=== PATIENT | female | born 1935 | race Caucasian/White ===

== ENCOUNTER 2020-07-15 09:55 | Outpatient (RCR) | payer MEDICARE, OTHER, SELFPAY | END 2020-08-04 23:59 | disposition home or self-care (01) | LOC: SPT 09:55 | PROVIDERS: PCP Family Medicine; Referring Provider Family Medicine; Visit Provider Family Medicine | DX: R15.9 Full incontinence of feces (principal); N39.41 Urge incontinence; N81.89 Other female genital prolapse | CPT/HCPCS: 97110; 97140; 97161; 97530 ==

== ENCOUNTER 2020-08-05 06:00 | Outpatient (RCR) | payer MEDICARE, OTHER, SELFPAY | END 2020-09-04 23:59 | disposition home or self-care (01) | LOC: SPT 06:00 | PROVIDERS: PCP Family Medicine; Referring Provider Family Medicine; Visit Provider Family Medicine | DX: R15.9 Full incontinence of feces (principal); N81.89 Other female genital prolapse; N39.41 Urge incontinence | CPT/HCPCS: 97140; 97530 ==

== ENCOUNTER → 2022-09-23 15:44 | Outpatient (BNVA) | payer MEDICARE, OTHER, SELFPAY | PROVIDERS: PCP Family Medicine; Referring Provider Family Medicine; Visit Provider Physician Assistant | DX: S22.000A Wedge compression fracture of unspecified thoracic vertebra, initial encounter for closed fracture (principal); S32.010A Wedge compression fracture of first lumbar vertebra, initial encounter for closed fracture; W19.XXXA Unspecified fall, initial encounter | CPT/HCPCS: 72070; 72100 ==

== ENCOUNTER 2022-09-23 17:11 | Outpatient (CLI) | payer MEDICARE, OTHER, SELFPAY | END 2022-09-23 17:12 | disposition home or self-care (01) | LOC: SPT 17:12 | PROVIDERS: PCP Family Medicine; Visit Provider Physician Assistant | DX: Z46.89 Encounter for fitting and adjustment of other specified devices (principal); S22.000D Wedge compression fracture of unspecified thoracic vertebra, subsequent encounter for fracture with routine healing; X58.XXXD Exposure to other specified factors, subsequent encounter | CPT/HCPCS: 97760; 99203; L0456 ==

== ENCOUNTER 2022-11-02 12:52 | Outpatient (CLI) | payer MEDICARE, OTHER, SELFPAY ==
--- NOTE | 2022-11-02 13:00 | MR_ITS ---
WS: [email or web address] MRI THORACIC SPINE WITHOUT CONTRAST TECHNIQUE: Sagittal T1, T2 and STIR imaging. Axial T2 imaging. Noncontrast imaging obtained. CLINICAL INFORMATION: pain COMPARISON: None. FINDINGS: Mild thoracic curve. No acute compression. Chronic anterior wedging at L1. Cord signal is normal. No high-grade central canal stenosis. Moderate facet arthropathy lower thoracic spine. A few tiny shallow disc protrusions in the upper tho racic spine at T2-T3, T3-T4, T4-T5, T5-T6, and T6-T7. Moderate facet arthropathy lower thoracic spine at T9-T10, T10-T11 and T11-T12. Adrenal glands are normal. Normal caliber thoracic aorta. Small to moderate esophageal hiatal hernia. MR/MR thoracic spin wo con* [id number] IMPRESSION: 1. Mild thoracic curve. Mild thoracic kyphosis. No acute compression fractures . 2. Chronic anterior wedging at L1. 3. No high-grade central canal stenosis. Cord signal is normal. 4. Spondylitic changes described above. 5. Small to moderate esophageal hiatal hernia.
--- NOTE | 2022-11-02 13:45 | MR_ITS ---
WS: [email or web address] MRI LUMBAR SPINE NONCONTRAST TECHNIQUE: Sagittal T1, T2 and STIR imaging. Axial T1 and T2 imaging. CLINICAL INFORMATION: pain COMPARISON: None. FINDINGS: Mild lumbar curve. No acute compression. Slight anterolisthesis L4 on L5. Chronic anterior wedging at L1 with endplate degenerative changes. L1-L2: Disc osteophyte complex with endplate ridging. Narrowing of the LEFT subarticular recess. Mild LEFT foraminal narrowing. Mild facet arthropathy. L2-L3: Mild disc bulging with osteophytic ridging. Impingement on the traversing RIGHT L3 nerve root and subarticular recess. Foramen are patent. Mild facet arthropathy. L3-L4: Disc osteophyte complex with endplate ridging. Impingement on the traversing RIGHT L4 nerve ro ot. Mild facet arthropathy. Mild RIGHT and no significant LEFT foraminal narrowing. Moderate facet ar thropathy. L4-L5: Disc osteophyte complex with endplate ridging. Impingement RIGHT subarticular recess. Mild RIG HT and no significant LEFT foraminal narrowing. Mild facet arthropathy. L5-S1: Disc osteophyte complex with endplate ridging. Impingement on the traversing RIGHT greater layla n LEFT S1 nerve roots. Mild to moderate RIGHT and no LEFT foraminal narrowing. Moderate facet arthrop athy. Visualized pelvic bony structures: Normal. Paravertebral soft tissues: Normal. MR/MR lumbar spine wo con* [id number] IMPRESSION: 1. Mild lumbar curve. Chronic anterior wedging at L1 with endplate degenerativ e changes. 2. No acute compression fractures. 3. Impingement on the subarticular recess at multiple levels LEFT L1-L2, RIGHT L2-L3, RIGHT L3-L4, RIGHT L4-L5 and RIGHT L5-S1. 4. Impingement worse on the traversing RIGHT L4 and RIGHT S1 traversing nerve roots. 5. Mild to moderate bony foraminal narrowing LEFT L1-L2, RIGHT L3-L4, and RIGH T L5-S1. 6. Moderate facet arthropathy L2-L3, L3-L4, L4-L5, and L5-S1
== END 2022-11-02 12:53 | disposition home or self-care (01) ==
LOC: RAD 12:56
PROVIDERS: PCP Family Medicine; Visit Provider Physician Assistant
DX: S22.000A Wedge compression fracture of unspecified thoracic vertebra, initial encounter for closed fracture (principal); X58.XXXA Exposure to other specified factors, initial encounter; M47.894 Other spondylosis, thoracic region; M47.896 Other spondylosis, lumbar region
CPT/HCPCS: 72146; 72148

== ENCOUNTER → 2022-11-18 13:29 | Outpatient (BNVA) | payer MEDICARE, OTHER, SELFPAY | PROVIDERS: PCP Family Medicine; Visit Provider Orthopaedic Surgery | DX: M47.816 Spondylosis without myelopathy or radiculopathy, lumbar region (principal) | CPT/HCPCS: 99214 ==

== ENCOUNTER 2023-01-26 09:50 | Outpatient (CLI) | payer MEDICARE, OTHER, SELFPAY ==
--- NOTE | 2023-01-26 10:15 | USCV_ITS ---
Yuko De La O Age: 87 Gender: F : 1935 Exam Date: 01/26/2023 10:23 Ordering Phys: Radha Hinds MD Technologist: Natali Armenta [place] [facility] [place]ication: sob, HTN BP: 165 / 88 HR: 56 Rhythm: Sinus Technical Quality: Good MEASUREMENTS (Male / Female) Normal Values 2D ECHO LV Diastolic Diameter PLAX 4.7 cm 4.2 - 5.9 / 3.9 - 5.3 cm LV Systolic Diameter PLAX 1.2 cm IVS Diastolic Thickness 0.8 cm 0.6 - 1.0 / 0.6 - 0.9 cm IVS Systolic Thickness 1.5 cm LVPW Diastolic Thickness 0.9 cm 0.6 - 1.0 / 0.6 - 0.9 cm LVPW Systolic Thickness 2.5 cm LVOT Diameter 2.3 cm LV Ejection Fraction 2D Teich 96.3 % LV Ejection Fraction MOD 2C 37.0 % LV Ejection Fraction 2C AL 37.8 % LA Diameter 4.1 cm LA Width 3.8 cm LA Height 5.4 cm RA Width 4.0 cm RA Height 4.9 cm Aorta at Sinotubular Diameter 2.4 cm IVC Diameter 2.0 cm M-MODE Aortic Annulus Diameter 2.4 cm LA Ao Ratio MM 2.1 MV E Point Septal Separation 1.3 cm DOPPLER AV Peak Velocity 124.0 cm/s LVOT Peak Velocity 94.0 cm/s AV Area Cont Eq vti 2.9 cm squared AV Area Cont Eq pk 3.0 cm squared MV Peak Velocity 95.0 cm/s MV Area PHT 4.5 cm squared Mitral E to A Ratio 1.2 MV E' Velocity 51.0 cm/s Mitral E to MV E' Ratio 12.3 Mitral E to LV E' Lateral Ratio 11.2 Mitral E to LV E' Septal Ratio 13.7 TR Peak Velocity 326.3 cm/s TR Peak Gradient 42.6 mmHg Right Atrial Pressure 8.0 mmHg Pulmonary Artery Systolic Pressu 50.6 mmHg PV Peak Velocity 96.7 cm/s RV Acceleration Time 0.1 s RV Ejection Time 0.3 s RV AcT/ET 0.4 FINDINGS Left Ventricle Normal left ventricular size, systolic function and wall thickness, with no regional wall motion abnormalities. Left ventricular ejection fraction is estimated at 65 %. Normal diastolic function. Right Ventricle Normal right ventricular size and systolic function. Right ventricular systolic pressure 48 mmHg. Right Atrium Normal right atrial size. Left Atrium Moderately increased left atrial size. Mitral Valve Mild mitral annular calcification. Structurally normal mitral valve. No mitral valve stenosis. Mild mitral valve regurgitation. Aortic Valve Structurally normal trileaflet aortic valve. No aortic valve stenosis. Mild aortic valve regurgitation. Tricuspid Valve Structurally normal tricuspid valve. No tricuspid valve stenosis. [id number]-[id number] tricuspid valve regurgitation. Pulmonic Valve Structurally normal pulmonic valve. No pulmonary valve stenosis. Trace pulmonary valve regurgitation. Pericardium No pericardial effusion. Aorta Normal size aortic root and proximal ascending aorta. IVC Normal IVC dimension with >50% respiratory change of the inferior vena cava. CONCLUSIONS 1. Normal left ventricular size, systolic function and wall thickness, with no regional wall motion abnormalities. Left ventricular ejection fraction is estimated at 65 %. Normal diastolic function. 2. Pulmonary artery pressure estimated at 48 mmHg. 3. Sayi-uv-adfvhahy tricuspid valve regurgitation. 4. Mild aortic and mitral valve regurgitation. 5. No prior similar studies to compare. Edna Mejia MD (Electronically Signed) Final Date: 26 Jan 2023 17:16 S
== END 2023-01-26 09:51 | disposition home or self-care (01) ==
PROVIDERS: PCP Family Medicine; Visit Provider Family Medicine
DX: I07.1 Rheumatic tricuspid insufficiency (principal); R06.00 Dyspnea, unspecified
CPT/HCPCS: 93306

== ENCOUNTER → 2023-03-28 11:23 | Outpatient (BNVA) | payer MEDICARE, OTHER, SELFPAY | PROVIDERS: PCP Family Medicine; Visit Provider Internal Medicine Cardiovascular Disease | DX: R06.02 Shortness of breath (principal); I10 Essential (primary) hypertension; K21.9 Gastro-esophageal reflux disease without esophagitis; M81.0 Age-related osteoporosis without current pathological fracture; Z87.891 Personal history of nicotine dependence | CPT/HCPCS: 99204 ==

== ENCOUNTER 2023-04-08 09:38 | Outpatient (CLI) | payer MEDICARE, OTHER, SELFPAY ==
--- NOTE | 2023-04-08 10:00 | USCV_ITS ---
Yuko De La O Age: 87 Gender: F : 1935 Exam Date: 04/08/2023 09:51 Ordering Phys: Edna Mejia MD ([email or web address]) Technologist: CT Exam Location: [facility] – [place] Indication: htn Aortic Velocity @ SMA (cm/s) 95.1 RIGHT KIDNEY LEFT KIDNEY Velocity (cm/s) Velocity (cm/s) Sys/Villar Sys/Villar Resistive Index Resistive Index 74.4 / 13.1 0.82 Proximal Renal Artery 133.1 / 20.8 0.84 71.4 / 14.4 0.80 Mid Renal Artery 96.0 / 15.0 0.84 94.7 / 16.9 0.82 Hilar 145.0 / 16.1 0.89 20.9 / 13.7 0.34 Upper Pole 43.8 / 9.9 0.77 29.7 / 8.6 0.71 Mid Pole 34.1 / 9.2 0.73 45.0 / 9.7 0.78 Lower Pole 30.3 / 9.7 0.68 0.80 Renal Aortic Ratio 1.47 Accleration Index (cm/sec2) 381.00 Hilar 1074.0 0 213.00 Upper Pole 500.00 141.00 Mid Pole 128.00 163.00 Lower Pole 125.00 94.7 Kidney Length (mm) 98.7 FINDINGS No evidence of abdominal aortic aneurysm. There is no evidence of hemodynamically significant right renal artery stenosis. There is no evidence of hemodynamically significant left renal artery stenosis. CONCLUSIONS No sonographic evidence of hemodynamically significant renal artery stenosis bilaterally. Dr. Rosa Ayala DO (Electronically Signed) Final Date: 08 April 2023 12:06 S
== END 2023-04-08 09:39 | disposition home or self-care (01) ==
PROVIDERS: PCP Family Medicine; Visit Provider Internal Medicine Cardiovascular Disease
DX: I10 Essential (primary) hypertension (principal); Z86.79 Personal history of other diseases of the circulatory system
CPT/HCPCS: 93975

== ENCOUNTER → 2023-06-27 13:32 | Outpatient (BNVA) | payer MEDICARE, OTHER, SELFPAY | PROVIDERS: PCP Family Medicine; Visit Provider Internal Medicine Cardiovascular Disease | DX: I10 Essential (primary) hypertension (principal); Z87.891 Personal history of nicotine dependence | CPT/HCPCS: 99214 ==

== ENCOUNTER → 2023-10-18 13:44 | Outpatient (BNVA) | payer MEDICARE, OTHER, SELFPAY | PROVIDERS: PCP Family Medicine; Referring Provider Family Medicine; Visit Provider Orthopaedic Surgery | DX: S32.010G Wedge compression fracture of first lumbar vertebra, subsequent encounter for fracture with delayed healing; X58.XXXD Exposure to other specified factors, subsequent encounter | CPT/HCPCS: 72072; 72110; 99214 ==

== ENCOUNTER 2023-12-01 12:54 | Outpatient (CLI) | payer MEDICARE, OTHER, SELFPAY ==
--- NOTE | 2023-12-01 13:00 | MR_ITS ---
WS: [email or web address] MRI LUMBAR SPINE NONCONTRAST HISTORY: back pain COMPARISON: Prior lumbar spine MRI 11/02/2022 and recent lumbar radiographs 10/18/2023 TECHNIQUE: Sagittal and axial multisequence imaging is submitted. Cervical disc osteophyte complexes contact the cervical cord at C4-5 and C5-6 with mild stenosis. Inc reasing kyphosis centered at the thoracolumbar junction. New acute compression fractures at T11 and T 12 with marrow edema throughout the vertebral bodies extending towards the pedicles. Approximately 30 to 40% loss of height anteriorly. No retropulsion. The L1 compression fracture by 20% is chronic. Curvature and scoliosis lumbar spine. L4 anterolisthesis by 2 mm. Disc spaces are narrowed and desicc ated throughout the lumbar spine. Conus terminates normally at L1-2 disc level. T10-11: Moderate bilateral foraminal stenosis. T11-12: Mild bilateral foraminal stenosis. L1-L2: Diffuse annular disc bulging encroaching upon the ventral thecal sac and the subarticular rece ss. Bilateral ligamentum flavum and facet arthritis. Mild central with moderate bilateral subarticula r recess and foraminal stenosis. L2-L3: Diffuse annular disc bulging with facet and ligamentum flavum hypertrophy. Mild bilateral suba rticular recess encroachment. L3-L4: Diffuse annular disc bulging encroaching upon the ventral thecal sac and subarticular recesses . Slightly greater encroachment and contact on the RIGHT traversing L4 nerve root. Mild central and b ilateral subarticular recess and RIGHT foraminal stenosis. L4-L5: Diffuse annular disc bulging asymmetric to the LEFT. Mild disc contact on the traversing L5 ne rve roots. Very slight central and bilateral subarticular recess and RIGHT foraminal stenosis. Mild L EFT foraminal stenosis. L5-S1: Annular disc bulging with disc contact on the S1 nerve roots. Disc and osteophyte and facet na rrowing of the foramina. At least moderate bilateral foraminal stenosis, RIGHT greater than LEFT. IMPRESSION: 1. Acute compression fractures involving T11 and T12 by 30 to 40%. No retropulsion. 2. Chronic L1 20% compression fracture. 3. Moderate foraminal stenosis at T10-11 and mild at T11-12. 4. L1-2: Mild central with moderate bilateral subarticular recess and foraminal stenosis. 5. L4-5: Mild central and bilateral subarticular recess and RIGHT foraminal stenosis. 6. Mild central stenosis with bilateral subarticular recess and RIGHT foraminal stenosis. 7. L3-4: Mild central, bilateral subarticular recess and RIGHT foraminal stenosis. Slightly greater disc contact on the traversing RIGHT L4 nerve root. 8. L5-S1: Annular disc bulging with disc contacting the S1 nerve roots. Moderate bilateral foraminal stenosis, RIGHT greater than LEFT. 9. The stenoses throughout the lumbar spine and degenerative changes not significantly progressed.
== END 2023-12-01 12:55 | disposition home or self-care (01) ==
LOC: RAD 12:54
PROVIDERS: PCP Family Medicine; Visit Provider Orthopaedic Surgery
DX: M54.9 Dorsalgia, unspecified (principal); M48.54XA Collapsed vertebra, not elsewhere classified, thoracic region, initial encounter for fracture; M48.04 Spinal stenosis, thoracic region; M48.061 Spinal stenosis, lumbar region without neurogenic claudication
CPT/HCPCS: 72148

== ENCOUNTER → 2023-12-19 10:48 | Outpatient (BNVA) | payer MEDICARE, OTHER, SELFPAY | PROVIDERS: PCP Family Medicine; Visit Provider Nurse Practitioner Family | DX: I10 Essential (primary) hypertension (principal); Z87.891 Personal history of nicotine dependence | CPT/HCPCS: 99214 ==

== ENCOUNTER → 2023-12-27 13:30 | Outpatient (BNVA) | payer MEDICARE, OTHER, SELFPAY | PROVIDERS: PCP Family Medicine; Visit Provider Orthopaedic Surgery | DX: S32.010G Wedge compression fracture of first lumbar vertebra, subsequent encounter for fracture with delayed healing (principal); X58.XXXD Exposure to other specified factors, subsequent encounter | CPT/HCPCS: 99214 ==

== ENCOUNTER → 2024-01-13 10:42 | Outpatient (BNVA) | payer MEDICARE, OTHER, SELFPAY | PROVIDERS: PCP Family Medicine; Visit Provider Family Medicine | DX: Z01.818 Encounter for other preprocedural examination (principal); R00.1 Bradycardia, unspecified; Z79.899 Other long term (current) drug therapy | CPT/HCPCS: 80053; 81003; 85025; 93005 ==

== ENCOUNTER → 2024-02-02 15:34 | Outpatient (BNVA) | payer MEDICARE, OTHER, SELFPAY | PROVIDERS: PCP Family Medicine; Visit Provider Orthopaedic Surgery | DX: M54.9 Dorsalgia, unspecified (principal); S32.010G Wedge compression fracture of first lumbar vertebra, subsequent encounter for fracture with delayed healing; X58.XXXD Exposure to other specified factors, subsequent encounter | CPT/HCPCS: 99214 ==

== ENCOUNTER 2024-02-15 10:52 | Outpatient (CLI) | payer MEDICARE, OTHER, SELFPAY ==
--- NOTE | 2024-02-15 11:00 | MR_ITS ---
WS: [email or web address] MRI LUMBAR SPINE WITH AND WITHOUT CONTRAST HISTORY: Back pain COMPARISON: 12/01/2023 TECHNIQUE: Sagittal and axial multisequence imaging is submitted. MultiHance 11 mm IV. Degenerative cervical and thoracic disc disease and scoliosis. Unchanged. Reidentified are acute fractures in T11 and T12 with persistent marrow edema. Fracture is approximate ly 30 to 40%. There is slightly increased marrow edema within T11 and T12. No retropulsion of the anyi tebral bodies. Very mild anterior wedging of L1 is chronic. Disc bases are all narrowed and desiccated. Conus terminates normally at L1-2 disc level. T12-L1: Mild disc bulging. Mild foraminal stenosis. L1-L2: Diffuse annular disc bulging and osteophytic ridging. Bilateral ligamentum flavum hypertrophy. Mild central and bilateral subarticular recess and foraminal stenosis is unchanged. L2-L3: Mild annular disc bulging with facet and ligamentum flavum hypertrophy. No significant stenosi s. Mild subarticular recess encroachment. L3-L4: Annular disc bulging encroaching upon the ventral thecal sac and subarticular recesses. Mild f acet joint arthropathy. Mild central and subarticular recess encroachment, unchanged. L4-L5: Mild annular disc bulging with mild facet arthritis. Mild narrowing of the subarticular recess es. Moderate RIGHT foraminal stenosis. Mild central and subarticular recess narrowing. L5-S1: Mild annular disc bulging. Disc contacts the S1 nerve roots bilaterally. Moderate bilateral fo raminal stenosis, RIGHT greater than LEFT. Paravertebral soft tissues are negative for acute process. Small bilateral extrarenal pelves. The LEF T ureter is very slightly dilated. Postcontrast imaging negative for discitis or osteomyelitis. There is enhancement within the T11 and T12 vertebral bodies related to the acute fractures. No associated mass. MR/MR lumbar spine wo/w con [id number] IMPRESSION: 1. Very minimal progression of edema within T11 and T12. No progression of the previously described subacute fractures. 2. Multilevel advanced degenerative disc disease and stenoses as described on 12/01/2023 without progression. 3. Chronic L1 compression fracture. 4. L1-2: Mild central, bilateral subarticular recess and foraminal stenosis. 5. L3-4 and L4-5: Mild central and subarticular recess stenosis. 6. L5-S1: Moderate bilateral foraminal stenosis, LEFT greater than RIGHT. Disc contacts the S1 nerve roots. 7. No discitis or epidural abscess.
[2024-02-15] MEDS: gadobenate dimeglumine 20 mL vial IV (11:33)
== END 2024-02-15 10:53 | disposition home or self-care (01) ==
LOC: RAD 10:52
PROVIDERS: PCP Family Medicine; Visit Provider Orthopaedic Surgery
DX: S22.089A Unspecified fracture of T11-T12 vertebra, initial encounter for closed fracture (principal); M50.33 Other cervical disc degeneration, cervicothoracic region; M48.03 Spinal stenosis, cervicothoracic region; M51.36 Other intervertebral disc degeneration, lumbar region; M48.061 Spinal stenosis, lumbar region without neurogenic claudication; M25.78 Osteophyte, vertebrae; M47.816 Spondylosis without myelopathy or radiculopathy, lumbar region; M51.37 Other intervertebral disc degeneration, lumbosacral region; M48.07 Spinal stenosis, lumbosacral region; X58.XXXA Exposure to other specified factors, initial encounter
CPT/HCPCS: 72158; A9577

== ENCOUNTER 2024-02-21 11:57 | Outpatient (CLI) | payer MEDICARE, OTHER, SELFPAY ==
--- NOTE | 2024-02-21 12:15 | MR_ITS ---
WS: [email or web address] MRI THORACIC SPINE WITH CONTRAST TECHNIQUE: Sagittal T1, T2 and STIR imaging. Axial T2 imaging. Post gadolinium imaging was obtained. CLINICAL INFORMATION: Back Pain COMPARISON: MRI 11/02/2022 and 12/01/2023 FINDINGS: T2 hyperintense RIGHT thyroid nodule measuring 16 x 14 mm. Thoracolumbar scoliosis. Moderate thoracic kyphosis. Compression fractures involving the T11 and T12 vertebral bodies with compression of the superior end plates appears unchanged since the lumbar MRI 12/01/2023. Minimal retropulsion the posterior superior cortex of T11 with slight effacement of ventral thecal sac and mild central canal stenosis. No high-g rade central canal stenosis. Loss of approximately 50% vertebral body height at T11 and 30% vertebral body height at T12. Chronic appearing anterior wedging at L1. Diffuse edema in the T11 and T12 verte bral bodies compatible with recent compression. Associated paravertebral edema. Cord signal is normal. A few tiny shallow disc protrusions in the upper and mid thoracic spine withou t significant central canal stenosis. Moderate facet arthropathy lower thoracic spine. Moderate esoph ageal hiatal hernia. Normal caliber thoracic aorta. Adrenal glands are normal. A few incidental perineural cysts in the thoracic spine at T8 and T9. Mild disc bulging L1-2 with eva rowing of the LEFT subarticular recess. Slight impingement on the LEFT L2 nerve root. Moderate LEFT L 1-2 foraminal narrowing. Suspected nodule measuring 9 mm RIGHT midline. MR/MR thoracic spine wo/w [id number] IMPRESSION: 1. Acute compression of the T11-12 vertebral bodies described above with diffu se edema. 2. Mild retropulsion of the posterior superior cortex T11 with mild central ca nal stenosis and slight effacement of the ventral thecal sac. No high-grade 3. Suspected nodule measuring 9 mm RIGHT midlung. Recommend further evaluation with chest CT. 4. Other nonacute findings described above.
== END 2024-02-21 11:58 | disposition home or self-care (01) ==
LOC: RAD 11:58
PROVIDERS: PCP Family Medicine; Visit Provider Orthopaedic Surgery
DX: G95.29 Other cord compression (principal); E04.1 Nontoxic single thyroid nodule; M40.204 Unspecified kyphosis, thoracic region; M53.84 Other specified dorsopathies, thoracic region; M48.04 Spinal stenosis, thoracic region; R91.8 Other nonspecific abnormal finding of lung field; M48.56XA Collapsed vertebra, not elsewhere classified, lumbar region, initial encounter for fracture; M47.814 Spondylosis without myelopathy or radiculopathy, thoracic region; G96.191 Perineural cyst; M51.36 Other intervertebral disc degeneration, lumbar region; M48.061 Spinal stenosis, lumbar region without neurogenic claudication
CPT/HCPCS: 72157; A9577

== ENCOUNTER → 2024-02-28 13:30 | Outpatient (BNVA) | payer MEDICARE, OTHER, SELFPAY | PROVIDERS: PCP Family Medicine; Visit Provider Orthopaedic Surgery | DX: M54.9 Dorsalgia, unspecified (principal); Z09 Encounter for follow-up examination after completed treatment for conditions other than malignant neoplasm | CPT/HCPCS: 80053; 81001; 85025; 99214 ==

== ENCOUNTER → 2024-04-24 13:55 | Outpatient (BNVA) | payer MEDICARE, OTHER, SELFPAY | PROVIDERS: PCP Family Medicine; Visit Provider Orthopaedic Surgery | DX: S32.010G Wedge compression fracture of first lumbar vertebra, subsequent encounter for fracture with delayed healing; S22.089A Unspecified fracture of T11-T12 vertebra, initial encounter for closed fracture; X58.XXXA Exposure to other specified factors, initial encounter | CPT/HCPCS: 72072; 99214 ==

== ENCOUNTER 2024-05-25 12:47 | Outpatient (CLI) | payer MEDICARE, OTHER, SELFPAY ==
--- NOTE | 2024-05-25 13:00 | MR_ITS ---
WS: [email or web address] MRI THORACIC SPINE WITHOUT CONTRAST TECHNIQUE: Sagittal T1, T2 and STIR imaging. Axial T2 imaging. Noncontrast imaging obtained. CLINICAL INFORMATION: back pain COMPARISON: MRI thoracic 02/21/2024 FINDINGS: Mild thoracic curve. Mild thoracic kyphosis. No high-grade central canal narrowing. Cord signal is no rmal. Again seen are the previously described compression fractures involving superior endplates of T 11 and T12. These are similar to the previous MRI with slightly more compression involving the superior endplates today measuring 1 to 2 mm. Persistent edema involving the T11 and T12 vertebral bodies with paravert ebral edema. Persistent fracture cleft visualized in the super endplates Minimal retropulsion at T11 and T12 unchanged in appearance with slight effacement of the ventral the briseyda sac. Otherwise no new compression fractures. No other significant changes compared to 02/21/2024 Moderate esophageal hiatal hernia. MR/MR thoracic spin wo con* [id number] IMPRESSION: 1. Mild thoracic curve. Moderate thoracic kyphosis. 2. Previously described compression fractures at T11 and T12 are similar in ap pearance with slightly progressed compression involving the superior endplates with persistent edema. 3. Minimal retropulsion of the posterior superior cortex with slight effacemen t of the ventral thecal sac is unchanged. 4. Otherwise no new compression fractures. 5. Otherwise no significant changes compared to 02/21/2024.
--- NOTE | 2024-05-25 13:45 | MR_ITS ---
WS: [email or web address] MRI LUMBAR SPINE NONCONTRAST TECHNIQUE: Sagittal T1, T2 and STIR imaging. Axial T1 and T2 imaging. CLINICAL INFORMATION: back pain COMPARISON: MRI 02/15/2024 FINDINGS: Mild lumbar curve. Again seen are the compression fractures involve the T11 and T12 superior endplate s with 1 to 2 mm of additional interval compression today with persistent edema. Fracture cleft in th e superior end plates with small amount of fluid. Paravertebral edema. No significant retropulsion. O therwise no new compression fractures in the lumbar spine. L1-L2: Mild annular bulging. Narrowing of the LEFT subarticular recess. Mild facet arthropathy. Mild LEFT foraminal narrowing. RIGHT foramen is patent. L2-L3: Mild disc bulging with slight narrowing of the RIGHT subarticular recess. Spinal canal and for amen are patent. Mild facet arthropathy. L3-L4: Mild annular bulging. Narrowing of the RIGHT subarticular recess. Impingement traversing RIGHT L4 nerve root. Mild facet arthropathy. Foramen are patent. L4-L5: Mild disc bulging with osteophytic ridging. Slight effacement of the ventral thecal sac. Moder ate facet arthropathy. Mild to moderate RIGHT foraminal narrowing. LEFT foramen is patent. L5-S1: Mild disc bulging with osteophytic ridging. Mild to moderate bilateral foraminal narrowing. Mo derate facet arthropathy. Visualized pelvic bony structures: Normal. Paravertebral soft tissues: Normal. MR/MR lumbar spine wo con* [id number] IMPRESSION: 1. Slight progression of the compression fractures involve the superior end pl ates of T11 and T12 with anterior wedging. Persistent fracture clefts with diff use edema. No significant retropulsion. 2. Otherwise no new compression fractures. 3. No other significant changes compared to previous.
== END 2024-05-25 12:48 | disposition home or self-care (01) ==
LOC: RAD 12:48
PROVIDERS: PCP Family Medicine; Visit Provider Orthopaedic Surgery
DX: S22.080A Wedge compression fracture of T11-T12 vertebra, initial encounter for closed fracture (principal); M47.896 Other spondylosis, lumbar region; M99.63 Osseous and subluxation stenosis of intervertebral foramina of lumbar region; M99.64 Osseous and subluxation stenosis of intervertebral foramina of sacral region; M47.898 Other spondylosis, sacral and sacrococcygeal region; X58.XXXA Exposure to other specified factors, initial encounter
CPT/HCPCS: 72146; 72148

== ENCOUNTER → 2024-06-19 13:28 | Outpatient (BNVA) | payer MEDICARE, OTHER, SELFPAY | PROVIDERS: PCP Family Medicine; Visit Provider Orthopaedic Surgery | DX: Z09 Encounter for follow-up examination after completed treatment for conditions other than malignant neoplasm (principal); Z01.818 Encounter for other preprocedural examination | CPT/HCPCS: 36415; 80053; 81001; 85025; 99214 ==